=== PATIENT | female | born 1970 | race American Indian/Alaskan Native ===

== ENCOUNTER 2020-03-16 11:51 | Emergency (ER) | payer MEDICAID, OTHER ==
[2020-03-16 12:01] VITALS: BP 148/96
[2020-03-16] MEDS ORDERED: IBUPROFEN 800 MG TAB PO ONE (12:14)
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
== END 2020-03-16 14:03 | disposition home or self-care (01) ==
LOC: ED 11:51
DX: S39.012A Strain of muscle, fascia and tendon of lower back, initial encounter (principal); S13.4XXA Sprain of ligaments of cervical spine, initial encounter; F31.9 Bipolar disorder, unspecified; I10 Essential (primary) hypertension; V89.2XXA Person injured in unspecified motor-vehicle accident, traffic, initial encounter; Y93.89 Activity, other specified; Y92.410 Unspecified street and highway as the place of occurrence of the external cause; Y99.8 Other external cause status
CPT/HCPCS: 72040; 72100

== ENCOUNTER 2020-06-04 04:13 | Emergency (ER) | payer MEDICAID ==
[2020-06-04 05:00] VITALS: BP 132/93
[2020-06-04 06:00] LABS: Blood Urea Nitrogen 8 mg/dL (7-17); Calcium 9.3 mg/dL (8.4-10.2); Hemolysis Index 52
[2020-06-04 06:05] LABS: BUN/Creatinine Ratio 10
[2020-06-04 06:12] LABS: Hematocrit 40.8 % (30.3-42.9); Hemoglobin 13.6 gm/dl (10.1-14.3); Mean Corpuscular HGB Conc 33 % (30-34); Mean Corpuscular Volume 91 fl (79-97); Platelet Count 181 K/mm3 (140-440); Red Blood Count 4.49 M/mm3 (3.65-5.03); Red Cell Distribution Width 13.8 % (13.2-15.2)
== END 2020-06-04 05:45 | disposition left against medical advice (07) ==
LOC: ED 04:13
DX: R11.0 Nausea (principal); R53.83 Other fatigue; Z53.21 Procedure and treatment not carried out due to patient leaving prior to being seen by health care provider
CPT/HCPCS: 36415; 80048; 85027